=== PATIENT | male | born 1960 | race Caucasian/White ===

== ENCOUNTER 2017-10-20 23:11 | Inpatient (IN) | payer SELFPAY ==
[~2017-10-20] VITALS: Ht 182.9 cm; Wt 132.0 kg
[2017-10-20] MEDS ORDERED: PANTOPRAZOLE 40 MG/10 ML VIAL IV ONE (23:28)
[2017-10-20] MEDS ORDERED: SODIUM CHLORIDE 0.9% 1,000 ML IV ONE (23:30)
[2017-10-20] MEDS: OCTREOTIDE ACETATE 500 MCG in SODIUM CHL 0.9% 99 ML IV SCH (23:45)
[2017-10-20] MEDS ORDERED: ONDANSETRON HCL 4 MG/2 ML VIAL IV ONE (23:45)
[2017-10-20] MEDS ORDERED: OCTREOTIDE ACETATE 100 MCG in SODIUM CHL 0.9% 50 ML IV ONE (23:45)
[2017-10-21] VITALS (54 sets, daily range): BP systolic 64–165; BP diastolic 32–89
[2017-10-21] MEDS ORDERED: PANTOPRAZOLE 40 MG/10 ML VIAL IV ONE
[2017-10-21] MEDS ORDERED: OCTREOTIDE ACETATE 100 MCG/ML VL ONE (00:06)
[2017-10-21] MEDS ORDERED: OCTREOTIDE ACETATE 500 MCG/ML VL ONE (00:07)
[2017-10-21 00:18] LABS: Basophils # (auto) 0.1 uL; Basophils % (auto) 0.7 % (0.0-2.0); Eosinophils # (auto) 0.1 uL; Eosinophils % (auto) 0.6 % (0.0-7.0); Hemoglobin 8.2 g/dL (13.5-17.5); Lymphocytes # (auto) 1.4 uL; Lymphocytes % (auto) 11.2 % (10.0-50.0); Mean Corpuscular Hemoglobin 36.1 pg (28.0-32.0); Mean Corpuscular Hgb Conc. 35.6 g/dL (32.0-36.0); Mean Corpuscular Volume 101.4 fL (80.0-100.0); Monocytes # (auto) 1.7 uL; Monocytes % (auto) 13.5 % (0.0-12.0); Neutrophils # (auto) 9.2 uL; Nucleated Red Blood Cells % 0.1 %; Platelet Count (auto) 91 10^3/uL (140-450); Red Blood Cells 2.27 10^6/uL (4.5-5.90); Red Cell Distribution Width 14.5 % (11.8-14.3); White Blood Cell 12.4 10^3/uL (4.4-10.8)
[2017-10-21] MEDS ORDERED: METOCLOPRAMIDE HCL 5MG/ml INJ 2ml VIAL IV ONE (00:30)
[2017-10-21 00:34] LABS: Partial Thromboplastin Time 37.5 sec (23.78-33.04); Prothrombin Time 20.6 sec (9.27-12.13)
[2017-10-21 00:35] LABS: Amylase 39 U/L (25-115); Lipase 396 U/L (73-393)
[2017-10-21 00:39] LABS: Albumin 1.3 g/dL (3.4-5.0); BUN/Creatinine Ratio 15.7; Bilirubin, Total 6.8 mg/dL (0.2-1.0); Calcium 6.8 mg/dL (8.5-10.1); Potassium 3.3 mmol/L (3.5-5.1); Total Protein 4.3 g/dL (6.4-8.2)
[2017-10-21] MEDS ORDERED: BENZOCAINE (DENTAL) 20 % SPRAY 60ML MT ONE (01:13)
[2017-10-21] MEDS ORDERED: LORazepam 2MG/ML-1ML VIAL ONE (01:55)
[2017-10-21] MEDS ORDERED: LORazepam 2MG/ML-1ML VIAL IV ONE (02:00)
[2017-10-21] MEDS ORDERED: ONDANSETRON HCL 4 MG/2 ML VIAL IV PRN (03:45)
[2017-10-21] MEDS ORDERED: SODIUM CHLORIDE 0.9% 1,000 ML IV SCH (03:45)
[2017-10-21 05:36] LABS: Urine Bacteria FEW /hpf (None Seen); Urine Blood Negative /uL (Negative); Urine Hyaline Cast MANY /lpf (0 - 2); Urine Mucus FEW (None Seen); Urine Specific Gravity 1.024 (1.001-1.035); Urine WBC 1 /hpf (0 - 3)
[2017-10-21] MEDS: metroNIDAZOLE 500MG/100ML 100 ML IV SCH ×3 (05:49→23:01)
[2017-10-21 05:51] LABS: Amphetamine Screen, Urine NEGATIVE (NEGATIVE); Barbiturate Scree,Urine NEGATIVE (NEGATIVE); Benzodiazephine Screen, Urine NEGATIVE (NEGATIVE); Cannabinoid Screen, Urine NEGATIVE (NEGATIVE); Cocaine Screen, Urine NEGATIVE (NEGATIVE); Opiate Scree,Urine NEGATIVE (NEGATIVE); Phencyclidine Screen, Urine NEGATIVE (NEGATIVE)
[2017-10-21] MEDS: SODIUM CHLORIDE 0.9% 1,000 ML IV SCH ×3 (06:27→20:26)
[2017-10-21 08:37] LABS: Hematocrit 24.9 % (41.0-53.0); Hemoglobin 8.5 g/dL (13.5-17.5); Mean Corpuscular Hemoglobin 33.2 pg (28.0-32.0); Mean Corpuscular Hgb Conc. 34.2 g/dL (32.0-36.0); Platelet Count (auto) 99 10^3/uL (140-450); Red Blood Cells 2.57 10^6/uL (4.5-5.90); Red Cell Distribution Width 16.4 % (11.8-14.3); White Blood Cell 16.6 10^3/uL (4.4-10.8)
[2017-10-21 08:42] LABS: Basophils % (manual) 0 (0.0-2.0); Blast Cells 0; Eosinophils % (manual) 0 (0-7); Metamyelocytes % 0; Myelocytes % 0; Promyelocytes % 0; Reactive Lymphocytes 0
[2017-10-21 08:45] LABS: INR 1.84 (0.9-1.15); Partial Thromboplastin Time 35.7 sec (23.78-33.04)
[2017-10-21 08:50] LABS: Albumin 1.5 g/dL (3.4-5.0); BUN/Creatinine Ratio 15.2; Bilirubin, Total 8.9 mg/dL (0.2-1.0); Calcium 6.5 mg/dL (8.5-10.1); Potassium 4.6 mmol/L (3.5-5.1); Total Protein 4.1 g/dL (6.4-8.2)
[2017-10-21] MEDS: cefTRIAXone 1GM/10ml IVPUSH 10 ML IV SCH (09:13)
[2017-10-21 09:30] LABS: Band Neutrophils % (manual) 7; Lymphocytes % (manual) 6 (10.0-50.0); Monocytes % (manual) 2 (0-12)
[2017-10-21] MEDS ORDERED: PANTOPRAZOLE 40 MG/10 ML VIAL IV SCH (10:00)
[2017-10-21] MEDS: NOREPINEPHRINE 8 MG/250ML KIT 250 ML IV SCH (10:15)
[2017-10-21] MEDS: OCTREOTIDE ACETATE 500 MCG in SODIUM CHL 0.9% 99 ML IV SCH ×2 (10:15→20:25)
[2017-10-21] MEDS ORDERED: SUCCINYLCHOLINE CHLORIDE 20 MG/ML 10ML VIAL IV ONE (10:25)
[2017-10-21] MEDS ORDERED: ETOMIDATE (2MG/ML) 20ML VIAL IV ONE (10:25)
[2017-10-21] MEDS ORDERED: MIDAZOLAM HCL 5 MG/ML-1ML VIAL IV ONE (10:30)
[2017-10-21] MEDS ORDERED: MIDAZOLAM HCL 5 MG/ML-1ML VIAL ONE (10:32)
[2017-10-21] MEDS ORDERED: MIDAZOLAM DRIP 50 mg/50mL 50 ML IV ONE (10:32)
[2017-10-21] MEDS: MIDAZOLAM DRIP 50 mg/50mL 50 ML IV SCH ×2 (10:41→21:21)
[2017-10-21] MEDS ORDERED: SODIUM CHLORIDE 0.9% 2,000 ML IV ONE (11:15)
[2017-10-21] MEDS ORDERED: ROCURONIUM 10MG/ML 10ML VIAL IV ONE (12:11)
[2017-10-21] MEDS ORDERED: fentaNYL CITRATE 100 MCG/2 ML VL ONE (12:15)
[2017-10-21] MEDS ORDERED: PHENYLEPHRINE HCL 10 MG/ML VL ONE (12:16)
[2017-10-21] MEDS ORDERED: SODIUM BICARBONATE 8.4% INJ 50ML SYRINGE ONE ×2 (12:17→16:56)
[2017-10-21] MEDS ORDERED: METOCLOPRAMIDE HCL 5MG/ml INJ 2ml VIAL ONE (12:18)
[2017-10-21] MEDS ORDERED: ePHEDrine SULFATE 50 MG/ML AMP IV PRN (12:45)
[2017-10-21] MEDS ORDERED: HYDROmorphone HCL 2 MG/ML VL IV PRN (12:45)
[2017-10-21 14:33] LABS: Hematocrit 24.6 % (41.0-53.0); Hemoglobin 8.5 g/dL (13.5-17.5)
[2017-10-21] MEDS ORDERED: VANCOMYCIN PER PHARMACY 0 MG IV SCH (14:45)
[2017-10-21] MEDS ORDERED: VANCOMYCIN 1GM/250ML 250 ML IV ONE (15:00)
[2017-10-21] MEDS ORDERED: SODIUM BICARBONATE 8.4 % INJ 50ML VIAL IV ONE ×4 (17:00→23:57)
[2017-10-21] MEDS: SODIUM BICARBONATE 50ML VIAL 100 ML in SOD CHL 0.45% 1,000 ML IV SCH (17:00)
[2017-10-21] MEDS: PANTOPRAZOLE 80 MG in SODIUM CHL 0.9% 60 ML IV SCH (17:00)
[2017-10-21] MEDS ORDERED: CALCIUM CHLOR(10%) 100MG/ML 10ML SYRINGE IV ONE (17:57)
[2017-10-21 18:14] LABS: Hematocrit 31.1 % (41.0-53.0); Hemoglobin 10.5 g/dL (13.5-17.5)
[2017-10-21] MEDS: VANCOMYCIN 1GM/250ML 250 ML IV SCH (20:44)
[2017-10-21] MEDS ORDERED: SODIUM BICARBONATE 8.4 % INJ 50ML VIAL IV SCH (21:00)
[2017-10-21 23:29] LABS: Hematocrit 21.8 % (41.0-53.0); Hemoglobin 7.7 g/dL (13.5-17.5)
[2017-10-22] VITALS (71 sets, daily range): BP systolic 69–132; BP diastolic 25–70
[2017-10-22] MEDS: PANTOPRAZOLE 80 MG in SODIUM CHL 0.9% 60 ML IV SCH ×3 (00:45→21:05)
[2017-10-22] MEDS ORDERED: PHENYLEPHRINE IV 250 ML IV ONE ×4 (01:07→17:29)
[2017-10-22] MEDS ORDERED: CALCIUM GLUC 4.65meq/50ml D5AE 50 ML IV ONE ×2 (03:30→03:44)
[2017-10-22] MEDS ORDERED: SODIUM BICARBONATE 8.4 % INJ 50ML VIAL IV ONE ×3 (03:45→13:00)
[2017-10-22] MEDS: NOREPINEPHRINE 8 MG/250ML KIT 250 ML IV SCH ×2 (03:52→05:55)
[2017-10-22] MEDS: SODIUM CHLORIDE 0.9% 1,000 ML IV SCH (04:33)
[2017-10-22 04:51] LABS: Basophils # (auto) 0.1 uL; Basophils % (auto) 0.3 % (0.0-2.0); Eosinophils # (auto) 0.1 uL; Eosinophils % (auto) 0.4 % (0.0-7.0); Hematocrit 37.7 % (41.0-53.0); Hemoglobin 12.4 g/dL (13.5-17.5); Lymphocytes # (auto) 1.7 uL; Mean Corpuscular Hemoglobin 32.4 pg (28.0-32.0); Mean Corpuscular Hgb Conc. 32.8 g/dL (32.0-36.0); Mean Corpuscular Volume 98.8 fL (80.0-100.0); Monocytes # (auto) 2.9 uL; Neutrophils # (auto) 19.5 uL; Neutrophils % (auto) 80.3 % (37.0-80.0); Nucleated Red Blood Cells % 0.1 %; Platelet Count (auto) 86 10^3/uL (140-450); Red Blood Cells 3.82 10^6/uL (4.5-5.90); Red Cell Distribution Width 16.4 % (11.8-14.3); White Blood Cell 24.3 10^3/uL (4.4-10.8)
[2017-10-22] MEDS: OCTREOTIDE ACETATE 500 MCG in SODIUM CHL 0.9% 99 ML IV SCH ×3 (05:10→21:06)
[2017-10-22 05:29] LABS: BUN/Creatinine Ratio 10.2; Calcium 6.4 mg/dL (8.5-10.1); Potassium 5.3 mmol/L (3.5-5.1)
[2017-10-22] MEDS: VANCOMYCIN 1GM/250ML 250 ML IV SCH (05:44)
[2017-10-22] MEDS: SODIUM BICARBONATE 50ML VIAL 100 ML in SOD CHL 0.45% 1,000 ML IV SCH (05:44)
[2017-10-22] MEDS: metroNIDAZOLE 500MG/100ML 100 ML IV SCH ×3 (06:54→21:37)
[2017-10-22] MEDS: MIDAZOLAM DRIP 50 mg/50mL 50 ML IV SCH (07:50)
[2017-10-22] MEDS: SODIUM BICARBONATE 50ML VIAL 150 ML in D5W 5% 1,000 ML IV SCH ×2 (07:54→21:37)
[2017-10-22] MEDS: PHENYLEPHRINE INJ 20 MG in D5W 5% 250 ML IV SCH ×2 (08:00→14:01)
[2017-10-22] MEDS: VASOPRESSIN 50 UNITS in D5W 5% 247.5 ML IV SCH (08:30)
[2017-10-22 09:12] LABS: Hematocrit 42.1 % (41.0-53.0); Hemoglobin 13.1 g/dL (13.5-17.5)
[2017-10-22] MEDS: cefTRIAXone 1GM/10ml IVPUSH 10 ML IV SCH (09:17)
[2017-10-22 09:19] LABS: Prothrombin Time 44.8 sec (9.27-12.13)
[2017-10-22 09:26] LABS: INR 4.56 (0.9-1.15)
[2017-10-22] MEDS ORDERED: LACTULOSE 20Gm/30ML SOLN NG ONE (09:45)
[2017-10-22 09:52] LABS: Lactic Acid w/Reflex 19.2 mmol/L (0.4-2.0)
[2017-10-22 14:23] LABS: Hematocrit 36.8 % (41.0-53.0); Hemoglobin 12.1 g/dL (13.5-17.5)
[2017-10-22] MEDS ORDERED: BUMETANIDE (0.25 MG/ML) INJ 10ML IV ONE (19:00)
[2017-10-22 20:25] LABS: Hematocrit 34.9 % (41.0-53.0); Hemoglobin 11.8 g/dL (13.5-17.5)
[2017-10-22 21:11] LABS: BUN/Creatinine Ratio 9.5; Calcium 6.2 mg/dL (8.5-10.1); Potassium 4.9 mmol/L (3.5-5.1)
[2017-10-23] VITALS (115 sets, daily range): BP systolic 58–127; BP diastolic 42–75
[2017-10-23] MEDS: PHENYLEPHRINE INJ 20 MG in D5W 5% 250 ML IV SCH ×3 (00:10→15:49)
[2017-10-23 04:18] LABS: Hemoglobin 10.2 g/dL (13.5-17.5); Mean Corpuscular Hemoglobin 32.9 pg (28.0-32.0); Mean Corpuscular Hgb Conc. 35.2 g/dL (32.0-36.0); Mean Corpuscular Volume 93.5 fL (80.0-100.0)
[2017-10-23 04:25] LABS: Hematocrit 28.8 % (41.0-53.0); Platelet Count (auto) 40 10^3/uL (140-450); Red Blood Cells 3.09 10^6/uL (4.5-5.90); Red Cell Distribution Width 16.3 % (11.8-14.3); White Blood Cell 12.6 10^3/uL (4.4-10.8)
[2017-10-23 04:28] LABS: Prothrombin Time 44.2 sec (9.27-12.13)
[2017-10-23 04:35] LABS: INR 4.5 (0.9-1.15)
[2017-10-23 04:38] LABS: Basophils % (manual) 0 (0.0-2.0); Blast Cells 0; Eosinophils % (manual) 0 (0-7); Metamyelocytes % 0; Myelocytes % 0; Promyelocytes % 0; Reactive Lymphocytes 0
[2017-10-23 04:47] LABS: Albumin 1.7 g/dL (3.4-5.0); BUN/Creatinine Ratio 9.6; Bilirubin, Total 13.5 mg/dL (0.2-1.0); Phosphorus 6.3 mg/dL (2.5-4.90); Total Protein 3.6 g/dL (6.4-8.2)
[2017-10-23 05:02] LABS: Calcium 5.9 mg/dL (8.5-10.1)
[2017-10-23] MEDS: metroNIDAZOLE 500MG/100ML 100 ML IV SCH ×3 (05:22→21:57)
[2017-10-23] MEDS ORDERED: BUMETANIDE (0.25 MG/ML) INJ 10ML IV ONE (05:45)
[2017-10-23 06:33] LABS: Band Neutrophils % (manual) 13; Lymphocytes % (manual) 7 (10.0-50.0); Monocytes % (manual) 14 (0-12)
[2017-10-23] MEDS: PANTOPRAZOLE 80 MG in SODIUM CHL 0.9% 60 ML IV SCH ×3 (06:45→21:17)
[2017-10-23] MEDS: FUROSEMIDE INJECTION 500 MG in SODIUM CHL 0.9% 450 ML IV SCH (07:20)
[2017-10-23] MEDS: VASOPRESSIN 50 UNITS in D5W 5% 247.5 ML IV SCH (08:30)
[2017-10-23] MEDS ORDERED: LACTULOSE 20Gm/30ML SOLN NG ONE (09:45)
[2017-10-23] MEDS: cefTRIAXone 1GM/10ml IVPUSH 10 ML IV SCH (09:47)
[2017-10-23] MEDS ORDERED: phytonadione 10 MG in SODIUM CHL 0.9% 50 ML IV SCH (11:00)
[2017-10-23] MEDS ORDERED: PHYTONADIONE (VIT K)10 MG/ML 1ML VIAL IV SCH (11:00)
[2017-10-23] MEDS: MIDAZOLAM DRIP 50 mg/50mL 50 ML IV SCH ×2 (12:24→13:45)
[2017-10-23] MEDS: OCTREOTIDE ACETATE 500 MCG in SODIUM CHL 0.9% 99 ML IV SCH ×2 (12:24→22:25)
[2017-10-23] MEDS: NOREPINEPHRINE 8 MG/250ML KIT 250 ML IV SCH (12:25)
[2017-10-23 12:37] LABS: Hemoglobin 8.2 g/dL (13.5-17.5)
[2017-10-23 12:39] LABS: Hematocrit 23.1 % (41.0-53.0)
[2017-10-23] MEDS ORDERED: FLUCONAZOLE 200MG/100ML 100 ML IV SCH (16:00)
[2017-10-23] MEDS: MICAFUNGIN SODIUM 100 MG in SODIUM CHL 0.9% 100 ML IV SCH (16:34)
[2017-10-23 20:29] LABS: Hematocrit 25.7 % (41.0-53.0); Hemoglobin 9.1 g/dL (13.5-17.5)
[2017-10-24] VITALS (115 sets, daily range): BP systolic 77–116; BP diastolic 26–57
[2017-10-24] MEDS: PHENYLEPHRINE INJ 20 MG in D5W 5% 250 ML IV SCH ×5 (01:10→22:48)
[2017-10-24 04:20] LABS: Hematocrit 27.8 % (41.0-53.0); Red Blood Cells 2.97 10^6/uL (4.5-5.90)
[2017-10-24 04:22] LABS: Hemoglobin 9.9 g/dL (13.5-17.5); Mean Corpuscular Hemoglobin 33.2 pg (28.0-32.0); Mean Corpuscular Hgb Conc. 35.5 g/dL (32.0-36.0); Mean Corpuscular Volume 93.6 fL (80.0-100.0); Platelet Count (auto) 35 10^3/uL (140-450); Red Cell Distribution Width 16.5 % (11.8-14.3); White Blood Cell 10.2 10^3/uL (4.4-10.8)
[2017-10-24] MEDS: NOREPINEPHRINE 8 MG/250ML KIT 250 ML IV SCH ×3 (04:28→20:03)
[2017-10-24 04:38] LABS: Albumin 2.1 g/dL (3.4-5.0); BUN/Creatinine Ratio 9.1; Potassium 3.9 mmol/L (3.5-5.1)
[2017-10-24 04:40] LABS: Basophils % (manual) 0 (0.0-2.0); Eosinophils % (manual) 0 (0-7); Metamyelocytes % 0; Myelocytes % 0; Promyelocytes % 0; Reactive Lymphocytes 0
[2017-10-24 04:47] LABS: Bilirubin, Total 17.7 mg/dL (0.2-1.0); Total Protein 4.5 g/dL (6.4-8.2)
[2017-10-24 04:50] LABS: Calcium 5.8 mg/dL (8.5-10.1)
[2017-10-24 05:17] LABS: Band Neutrophils % (manual) 6; Blast Cells 1; Lymphocytes % (manual) 4 (10.0-50.0); Monocytes % (manual) 14 (0-12)
[2017-10-24] MEDS: FUROSEMIDE INJECTION 500 MG in SODIUM CHL 0.9% 450 ML IV SCH (05:45)
[2017-10-24] MEDS ORDERED: PHYTONADIONE (VIT K)10 MG/ML 1ML VIAL IV ONE (06:00)
[2017-10-24] MEDS: MIDAZOLAM DRIP 50 mg/50mL 50 ML IV SCH ×3 (06:56→20:02)
[2017-10-24] MEDS: metroNIDAZOLE 500MG/100ML 100 ML IV SCH ×3 (06:56→22:16)
[2017-10-24] MEDS ORDERED: CALCIUM GLUC 4.65meq/50ml D5AE 50 ML IV ONE ×2 (07:00→08:30)
[2017-10-24] MEDS ORDERED: phytonadione 10 MG in SODIUM CHL 0.9% 50 ML IV ONE (08:00)
[2017-10-24] MEDS: VASOPRESSIN 50 UNITS in D5W 5% 247.5 ML IV SCH (08:30)
[2017-10-24 08:49] LABS: INR 3.89 (0.9-1.15); Partial Thromboplastin Time 45.7 sec (23.78-33.04); Prothrombin Time 38.5 sec (9.27-12.13)
[2017-10-24] MEDS: cefTRIAXone 1GM/10ml IVPUSH 10 ML IV SCH (09:00)
[2017-10-24] MEDS: OCTREOTIDE ACETATE 500 MCG in SODIUM CHL 0.9% 99 ML IV SCH ×3 (09:11→20:03)
[2017-10-24] MEDS ORDERED: FLUCONAZOLE 200MG/100ML 100 ML IV SCH (10:00)
[2017-10-24] MEDS ORDERED: VANCOMYCIN 1GM/250ML 250 ML IV ONE (12:00)
[2017-10-24] MEDS: PANTOPRAZOLE 80 MG in SODIUM CHL 0.9% 60 ML IV SCH ×2 (12:45→22:45)
[2017-10-24 13:06] LABS: Hematocrit 27.2 % (41.0-53.0); Hemoglobin 9.5 g/dL (13.5-17.5)
[2017-10-24] MEDS ORDERED: LIDOCAINE 2% (LOCAL ANESTH.) PF 5ml SDV ONE (13:17)
[2017-10-24] MEDS ORDERED: LIDOCAINE HCL 2 %PF INJ 10ML AMP IJ ONE (13:30)
[2017-10-24] MEDS: MICAFUNGIN SODIUM 100 MG in SODIUM CHL 0.9% 100 ML IV SCH (18:24)
[2017-10-24 20:01] LABS: Hematocrit 27.1 % (41.0-53.0); Hemoglobin 9.5 g/dL (13.5-17.5)
[2017-10-24] MEDS ORDERED: PHENYLEPHRINE IV 250 ML IV ONE (22:44)
[2017-10-25] VITALS (98 sets, daily range): BP systolic 84–139; BP diastolic 36–67
[2017-10-25] MEDS: PHENYLEPHRINE INJ 20 MG in D5W 5% 250 ML IV SCH ×4 (04:06→17:31)
[2017-10-25] MEDS: MIDAZOLAM DRIP 50 mg/50mL 50 ML IV SCH ×3 (04:07→18:25)
[2017-10-25 04:29] LABS: Hematocrit 27.2 % (41.0-53.0); Hemoglobin 9.5 g/dL (13.5-17.5); Mean Corpuscular Hgb Conc. 34.8 g/dL (32.0-36.0); Mean Corpuscular Volume 94.8 fL (80.0-100.0); Platelet Count (auto) 102 10^3/uL (140-450); Red Blood Cells 2.87 10^6/uL (4.5-5.90); Red Cell Distribution Width 17.5 % (11.8-14.3); White Blood Cell 23.3 10^3/uL (4.4-10.8)
[2017-10-25 04:50] LABS: Band Neutrophils % (manual) 0; Basophils % (manual) 0 (0.0-2.0); Blast Cells 0; Eosinophils % (manual) 0 (0-7); Metamyelocytes % 0; Myelocytes % 0; Promyelocytes % 0; Reactive Lymphocytes 0
[2017-10-25 05:09] LABS: Albumin 2.1 g/dL (3.4-5.0); BUN/Creatinine Ratio 7.3; Bilirubin, Total 18.3 mg/dL (0.2-1.0); Calcium 6.2 mg/dL (8.5-10.1); Potassium 3.8 mmol/L (3.5-5.1); Total Protein 4.4 g/dL (6.4-8.2)
[2017-10-25] MEDS: OCTREOTIDE ACETATE 500 MCG in SODIUM CHL 0.9% 99 ML IV SCH ×3 (06:03→16:29)
[2017-10-25] MEDS: metroNIDAZOLE 500MG/100ML 100 ML IV SCH ×3 (06:03→21:59)
[2017-10-25 08:05] LABS: Lymphocytes % (manual) 4 (10.0-50.0); Monocytes % (manual) 9 (0-12)
[2017-10-25] MEDS: VASOPRESSIN 50 UNITS in D5W 5% 247.5 ML IV SCH ×4 (08:30→21:54)
[2017-10-25] MEDS: PANTOPRAZOLE 80 MG in SODIUM CHL 0.9% 60 ML IV SCH ×2 (08:45→16:25)
[2017-10-25] MEDS: cefTRIAXone 1GM/10ml IVPUSH 10 ML IV SCH (09:00)
[2017-10-25] MEDS: NOREPINEPHRINE BITARTRATE 32 MG in D5W 5% 218 ML IV SCH ×2 (10:00→13:47)
[2017-10-25 10:13] LABS: Partial Thromboplastin Time 52.5 sec (23.78-33.04)
[2017-10-25 10:22] LABS: INR 5.56 (0.9-1.15)
[2017-10-25] MEDS ORDERED: PHENYLEPHRINE IV 250 ML IV ONE ×2 (12:46→17:24)
[2017-10-25] MEDS: MICAFUNGIN SODIUM 100 MG in SODIUM CHL 0.9% 100 ML IV SCH (16:00)
[2017-10-25] MEDS ORDERED: LACTULOSE 20Gm/30ML SOLN ONE (17:23)
[2017-10-25] MEDS ORDERED: LACTULOSE 20Gm/30ML SOLN PO ONE (17:30)
[2017-10-26] VITALS (105 sets, daily range): BP systolic 80–135; BP diastolic 27–72
[2017-10-26] MEDS ORDERED: LACTULOSE 20Gm/30ML SOLN PR SCH
[2017-10-26] MEDS ORDERED: LACTULOSE 20Gm/30ML SOLN PO SCH
[2017-10-26] MEDS: OCTREOTIDE ACETATE 500 MCG in SODIUM CHL 0.9% 99 ML IV SCH ×3 (00:16→21:54)
[2017-10-26] MEDS: MIDAZOLAM DRIP 50 mg/50mL 50 ML IV SCH ×3 (01:38→21:55)
[2017-10-26 03:35] LABS: Basophils # (auto) 0 uL; Eosinophils # (auto) 0.2 uL; Neutrophils % (auto) 80.2 % (37.0-80.0)
[2017-10-26 03:38] LABS: Basophils % (auto) 0.2 % (0.0-2.0); Hematocrit 27.7 % (41.0-53.0); Hemoglobin 9.6 g/dL (13.5-17.5); Lymphocytes # (auto) 1.5 uL; Lymphocytes % (auto) 7.4 % (10.0-50.0); Mean Corpuscular Hemoglobin 32.9 pg (28.0-32.0); Mean Corpuscular Hgb Conc. 34.5 g/dL (32.0-36.0); Mean Corpuscular Volume 95.3 fL (80.0-100.0); Monocytes # (auto) 2.2 uL; Monocytes % (auto) 11.2 % (0.0-12.0); Neutrophils # (auto) 15.8 uL; Nucleated Red Blood Cells % 0.6 %; Platelet Count (auto) 58 10^3/uL (140-450); Red Blood Cells 2.91 10^6/uL (4.5-5.90); Red Cell Distribution Width 18.6 % (11.8-14.3); White Blood Cell 19.7 10^3/uL (4.4-10.8)
[2017-10-26 03:58] LABS: Albumin 1.8 g/dL (3.4-5.0); BUN/Creatinine Ratio 6.2; Calcium 6.2 mg/dL (8.5-10.1); Potassium 4.1 mmol/L (3.5-5.1)
[2017-10-26 04:14] LABS: Bilirubin, Total 18.3 mg/dL (0.2-1.0); Total Protein 4.4 g/dL (6.4-8.2)
[2017-10-26] MEDS: PANTOPRAZOLE 80 MG in SODIUM CHL 0.9% 60 ML IV SCH ×2 (04:28→12:53)
[2017-10-26] MEDS: LACTULOSE 20Gm/30ML SOLN PR SCH ×3 (06:00→18:14)
[2017-10-26] MEDS: metroNIDAZOLE 500MG/100ML 100 ML IV SCH ×3 (06:00→21:51)
[2017-10-26] MEDS ORDERED: LACTULOSE 20Gm/30ML SOLN ONE (06:10)
[2017-10-26] MEDS: cefTRIAXone 1GM/10ml IVPUSH 10 ML IV SCH (09:00)
[2017-10-26] MEDS ORDERED: LACTULOSE 20Gm/30ML SOLN NG ONE (09:45)
[2017-10-26] MEDS ORDERED: VANCOMYCIN 1GM/250ML 250 ML IV ONE (10:00)
[2017-10-26] MEDS: NOREPINEPHRINE BITARTRATE 32 MG in D5W 5% 218 ML IV SCH (10:01)
[2017-10-26] MEDS: VASOPRESSIN 50 UNITS in D5W 5% 247.5 ML IV SCH ×2 (10:02→21:53)
[2017-10-26] MEDS: PHENYLEPHRINE INJ 20 MG in D5W 5% 250 ML IV SCH ×2 (13:59→21:51)
[2017-10-26] MEDS: MICAFUNGIN SODIUM 100 MG in SODIUM CHL 0.9% 100 ML IV SCH (16:10)
[2017-10-27] VITALS (111 sets, daily range): BP systolic 83–156; BP diastolic 27–87
[2017-10-27] MEDS: PANTOPRAZOLE 80 MG in SODIUM CHL 0.9% 60 ML IV SCH ×3 (00:40→22:14)
[2017-10-27 03:55] LABS: Basophils # (auto) 0.1 uL; Basophils % (auto) 0.3 % (0.0-2.0); Eosinophils # (auto) 0.2 uL; Eosinophils % (auto) 0.8 % (0.0-7.0); Hematocrit 28.4 % (41.0-53.0); Hemoglobin 9.5 g/dL (13.5-17.5); Lymphocytes # (auto) 1.6 uL; Lymphocytes % (auto) 8.6 % (10.0-50.0); Mean Corpuscular Hemoglobin 32.6 pg (28.0-32.0); Mean Corpuscular Hgb Conc. 33.6 g/dL (32.0-36.0); Mean Corpuscular Volume 97.2 fL (80.0-100.0); Monocytes # (auto) 1.7 uL; Monocytes % (auto) 9.1 % (0.0-12.0); Neutrophils # (auto) 15.4 uL; Neutrophils % (auto) 81.2 % (37.0-80.0); Nucleated Red Blood Cells % 0.8 %; Platelet Count (auto) 52 10^3/uL (140-450); Red Blood Cells 2.92 10^6/uL (4.5-5.90); Red Cell Distribution Width 19.6 % (11.8-14.3); White Blood Cell 18.9 10^3/uL (4.4-10.8)
[2017-10-27 04:11] LABS: Potassium 4.4 mmol/L (3.5-5.1)
[2017-10-27 04:17] LABS: Albumin 1.7 g/dL (3.4-5.0); BUN/Creatinine Ratio 5.4; Calcium 6.4 mg/dL (8.5-10.1); Total Protein 4.3 g/dL (6.4-8.2)
[2017-10-27 04:20] LABS: Prothrombin Time 91.4 sec (9.27-12.13)
[2017-10-27 04:26] LABS: Bilirubin, Total 18.5 mg/dL (0.2-1.0)
[2017-10-27 04:38] LABS: INR 9.72 (0.9-1.15)
[2017-10-27] MEDS: LACTULOSE 20Gm/30ML SOLN PR SCH ×3 (06:00→12:00)
[2017-10-27] MEDS: metroNIDAZOLE 500MG/100ML 100 ML IV SCH (06:00)
[2017-10-27] MEDS: MIDAZOLAM DRIP 50 mg/50mL 50 ML IV SCH ×2 (06:56→07:53)
[2017-10-27] MEDS: cefTRIAXone 1GM/10ml IVPUSH 10 ML IV SCH (09:00)
[2017-10-27] MEDS ORDERED: SODIUM CHL 0.9% 1000 ML BAG XX ONE (09:00)
[2017-10-27] MEDS: VASOPRESSIN 50 UNITS in D5W 5% 247.5 ML IV SCH ×2 (09:35→18:54)
[2017-10-27] MEDS: NOREPINEPHRINE BITARTRATE 32 MG in D5W 5% 218 ML IV SCH ×2 (09:45→18:54)
[2017-10-27] MEDS: OCTREOTIDE ACETATE 500 MCG in SODIUM CHL 0.9% 99 ML IV SCH (10:32)
[2017-10-27] MEDS: PHENYLEPHRINE INJ 20 MG in D5W 5% 250 ML IV SCH ×3 (10:38→22:15)
[2017-10-27] MEDS ORDERED: MVI in SODIUM CHLORIDE 0.9% 1,000 ML IVB ONE (11:38)
[2017-10-27] MEDS: ALBUMIN 25% 100 ML IV SCH ×2 (11:45→18:52)
[2017-10-27] MEDS: phytonadione 10 MG in SODIUM CHL 0.9% 50 ML IV SCH (12:00)
[2017-10-27] MEDS: fentaNYL Drip 2500mCg/250mlNS 250 ML IV SCH (12:00)
[2017-10-27] MEDS ORDERED: LIDOCAINE 2% (LOCAL ANESTH.) PF 5ml SDV ONE (12:11)
[2017-10-27] MEDS ORDERED: VANCOMYCIN 1GM/250ML 250 ML IV ONE (15:00)
[2017-10-27] MEDS ORDERED: THIAMINE INJ 100 MG, MULTIPLE VITAMIN 10 ML, FOLIC ACID 1 MG, MAGNESIUM SULF SDV 50% 8 ... IV SCH ×5 (16:00)
[2017-10-27] MEDS: LACTULOSE 20Gm/30ML SOLN PO SCH ×2 (18:00→23:24)
[2017-10-27] MEDS ORDERED: ADENOSINE 6 MG/2 ML INJ IV ONE ×3 (21:01→21:11)
[2017-10-27 21:12] LABS: Albumin 2.1 g/dL (3.4-5.0); BUN/Creatinine Ratio 4.6; Calcium 6.1 mg/dL (8.5-10.1); Potassium 4.8 mmol/L (3.5-5.1)
[2017-10-27] MEDS ORDERED: AMIODARONE HCL (50 MG/ ML) 3 ML VIAL IV ONE (21:13)
[2017-10-27] MEDS ORDERED: AMIODARONE HCL 900 MG IV ONE (21:13)
[2017-10-27] MEDS ORDERED: AMIODARONE HCL 150 MG in D5W 5% 100 ML IV ONE (21:18)
[2017-10-27 21:22] LABS: Bilirubin, Total 19.4 mg/dL (0.2-1.0); Total Protein 4.4 g/dL (6.4-8.2)
[2017-10-27] MEDS ORDERED: DILTIAZEM HCL 25 MG/5 ML VIAL IV ONE (21:27)
[2017-10-27] MEDS ORDERED: AMIODARONE HCL 900 MG in DEXTROSE 500 ML IV SCH (21:28)
[2017-10-27] MEDS ORDERED: DEXTROSE (50%) 50ML SYRG IV ONE (22:30)
[2017-10-27] MEDS ORDERED: DEXTROSE 10% 1,000 ML IV ONE (23:06)
[2017-10-28] VITALS (58 sets, daily range): BP systolic 83–152; BP diastolic 29–54
[2017-10-28] MEDS ORDERED: AMIODARONE HCL 900 MG in DEXTROSE 500 ML IV SCH (03:15)
[2017-10-28] MEDS: ALBUMIN 25% 100 ML IV SCH (03:25)
[2017-10-28 03:54] LABS: Hemoglobin 7.2 g/dL (13.5-17.5)
[2017-10-28 03:57] LABS: Hematocrit 21.8 % (41.0-53.0); Mean Corpuscular Hemoglobin 33.3 pg (28.0-32.0); Mean Corpuscular Hgb Conc. 33.2 g/dL (32.0-36.0); Mean Corpuscular Volume 100.3 fL (80.0-100.0); Platelet Count (auto) 30 10^3/uL (140-450); Red Blood Cells 2.18 10^6/uL (4.5-5.90); Red Cell Distribution Width 19.8 % (11.8-14.3); White Blood Cell 15.1 10^3/uL (4.4-10.8)
[2017-10-28] MEDS: ACCU-CHEK COMFORT CURVE STRIP VI SCH ×5 (04:00→12:19)
[2017-10-28 04:01] LABS: Basophils % (manual) 0 (0.0-2.0); Blast Cells 0; Eosinophils % (manual) 0 (0-7); Metamyelocytes % 0; Myelocytes % 0; Promyelocytes % 0; Prothrombin Time 77.8 sec (9.27-12.13); Reactive Lymphocytes 0
[2017-10-28 04:05] LABS: INR 8.19 (0.9-1.15); Partial Thromboplastin Time 94.2 sec (23.78-33.04)
[2017-10-28 04:06] LABS: Albumin 1.8 g/dL (3.4-5.0); BUN/Creatinine Ratio 4.5; Potassium 5.3 mmol/L (3.5-5.1)
[2017-10-28 04:15] LABS: Calcium 5.9 mg/dL (8.5-10.1)
[2017-10-28 04:18] LABS: Bilirubin, Total 17.4 mg/dL (0.2-1.0); Total Protein 3.7 g/dL (6.4-8.2)
[2017-10-28] MEDS: PANTOPRAZOLE 80 MG in SODIUM CHL 0.9% 60 ML IV SCH (04:51)
[2017-10-28] MEDS: OCTREOTIDE ACETATE 500 MCG in SODIUM CHL 0.9% 99 ML IV SCH (04:52)
[2017-10-28] MEDS: VASOPRESSIN 50 UNITS in D5W 5% 247.5 ML IV SCH (04:53)
[2017-10-28] MEDS: LACTULOSE 20Gm/30ML SOLN PO SCH ×2 (05:32→12:00)
[2017-10-28 06:09] LABS: Band Neutrophils % (manual) 4; Lymphocytes % (manual) 2 (10.0-50.0); Monocytes % (manual) 8 (0-12)
[2017-10-28] MEDS ORDERED: SODIUM BICARBONATE 650 MG TAB PO ONE (06:30)
[2017-10-28] MEDS ORDERED: DEXTROSE 10% 1,000 ML IV SCH (07:15)
[2017-10-28] MEDS: cefTRIAXone 1GM/10ml IVPUSH 10 ML IV SCH (10:25)
[2017-10-28] MEDS: fentaNYL Drip 2500mCg/250mlNS 250 ML IV SCH (11:38)
[2017-10-28] MEDS: phytonadione 10 MG in SODIUM CHL 0.9% 50 ML IV SCH (11:39)
[2017-10-28] MEDS ORDERED: LORazepam 2MG/ML-1ML VIAL IV PRN (12:30)
[2017-10-28] MEDS ORDERED: MORPHINE SULFATE 4 MG/ML SYR/VIAL IV PRN (12:30)
[2017-10-29] MEDS ORDERED: DEXTROSE 10% 1,000 ML IV ONE
== END 2017-10-28 17:33 | disposition expired | DRG 870 ==
LOC: ER 23:11 → TELE 23:12 → EDBD 23:12 → ICU WEST 10-21 14:44
PROVIDERS: ADMIT Nurse Practitioner Family; ATTEND Family Medicine
PROC: 5A1955Z Respiratory Ventilation, Greater than 96 Consecutive Hours (ICD-10-PCS; 2017-10-21)
PROC: 0BH17EZ Insertion of Endotracheal Airway into Trachea, Via Natural or Artificial Opening (ICD-10-PCS; 2017-10-21)
PROC: 30233N1 Transfusion of Nonautologous Red Blood Cells into Peripheral Vein, Percutaneous Approach (ICD-10-PCS; 2017-10-21)
PROC: 30233L1 Transfusion of Nonautologous Fresh Plasma into Peripheral Vein, Percutaneous Approach (ICD-10-PCS; 2017-10-23)
PROC: 30233R1 Transfusion of Nonautologous Platelets into Peripheral Vein, Percutaneous Approach (ICD-10-PCS; 2017-10-23)
PROC: 30233K1 Transfusion of Nonautologous Frozen Plasma into Peripheral Vein, Percutaneous Approach (ICD-10-PCS; 2017-10-23)
PROC: 02H633Z Insertion of Infusion Device into Right Atrium, Percutaneous Approach (ICD-10-PCS; principal; 2017-10-24)
PROC: 02HV33Z Insertion of Infusion Device into Superior Vena Cava, Percutaneous Approach (ICD-10-PCS; 2017-10-24)
PROC: 0W9G3ZZ Drainage of Peritoneal Cavity, Percutaneous Approach (ICD-10-PCS; 2017-10-24)
PROC: 5A1D70Z Performance of Urinary Filtration, Intermittent, Less than 6 Hours Per Day (ICD-10-PCS; 2017-10-24)
PROC: 06L38CZ Occlusion of Esophageal Vein with Extraluminal Device, Via Natural or Artificial Opening Endoscopic (ICD-10-PCS; 2017-10-24)
PROC: 5A1D70Z Performance of Urinary Filtration, Intermittent, Less than 6 Hours Per Day (ICD-10-PCS; 2017-10-25)
PROC: 5A1D70Z Performance of Urinary Filtration, Intermittent, Less than 6 Hours Per Day (ICD-10-PCS; 2017-10-26)
PROC: 0W9G3ZZ Drainage of Peritoneal Cavity, Percutaneous Approach (ICD-10-PCS; 2017-10-27)
PROC: 5A1D70Z Performance of Urinary Filtration, Intermittent, Less than 6 Hours Per Day (ICD-10-PCS; 2017-10-27)
DX: A41.89 Other specified sepsis (principal); E43 Unspecified severe protein-calorie malnutrition; I85.11 Secondary esophageal varices with bleeding; J69.0 Pneumonitis due to inhalation of food and vomit; J96.91 Respiratory failure, unspecified with hypoxia; K85.20 Alcohol induced acute pancreatitis without necrosis or infection; N17.0 Acute kidney failure with tubular necrosis; R65.21 Severe sepsis with septic shock; D62 Acute posthemorrhagic anemia; D68.4 Acquired coagulation factor deficiency; E87.2 Acidosis; I47.1 Supraventricular tachycardia; D69.6 Thrombocytopenia, unspecified; E66.9 Obesity, unspecified; E87.6 Hypokalemia; E87.70 Fluid overload, unspecified; F10.10 Alcohol abuse, uncomplicated; K20.9 Esophagitis, unspecified; I13.10 Hypertensive heart and chronic kidney disease without heart failure, with stage 1 through stage 4 chronic kidney disease, or unspecified chronic kidney disease; K70.31 Alcoholic cirrhosis of liver with ascites; N18.9 Chronic kidney disease, unspecified; Z51.5 Encounter for palliative care; B95.4 Other streptococcus as the cause of diseases classified elsewhere; Z66 Do not resuscitate; Z68.39 Body mass index [BMI] 39.0-39.9, adult; Z87.891 Personal history of nicotine dependence
CPT/HCPCS: 36415; 36430; 36600; 51702; 71045; 74018; 74176; 76700; 76937; 76942; 80048; 80053; 80202; 80307; 80320; 81001; 82140; 82150; 82310; 82805; 82962; 83605; 83615; 83690; 83735; 83880; 83986; 84100; 84484; 85007; 85014; 85018; 85025; 85027; 85048; 85610; 85730; 86850; 86900; 86901; 86920; 87040; 87070; 87077; 87081; 87086; 87186; 87205; 89051; 90935; 92960; 93005; 94002; 94003; 94640; 94761; 96365; 96367; 96375; 99291; C9113; J0153; J0330; J0610; J1642; J2248; J2250; J2405; J3430; J3490; J7060; P9047